=== PATIENT | female | born 1995 | race Hispanic/Latino ===

== ENCOUNTER 2018-06-08 21:46 | Emergency (ER) | payer OTHER ==
[~2018-06-08] VITALS: Ht 160 cm; Wt 80.7 kg
--- OUTSIDE RECORDS SUMMARY | 2018-06-08 21:49 | XMS REPORT ---
[facility] Address Unknown Phone Unavailable Care Team Providers Care Auto Locator Name Role Phone Unavailable Unavailable Payers Payer Name Policy Type Policy Number Effective Date Expiration Date Problems This patient has no known problems. Allergies, Adverse Reactions, Alerts Allergy Name Allergy Type Status Severity Reaction(s) Onset Date Inactive Date Treating Clinician Comments No Known Allergies DA Active U 2018-03-09 00:00:00 Medications This patient has no known medications.
== END 2018-06-08 22:40 | disposition home or self-care (01) ==
LOC: FSED 21:46
DX: L20.9 Atopic dermatitis, unspecified (principal)
CPT/HCPCS: 99282

== ENCOUNTER 2018-09-18 05:04 | Emergency (ER) | payer OTHER ==
[~2018-09-18] VITALS: Ht 160 cm; Wt 78.0 kg
--- NOTE | 2018-09-18 05:58 | Diagnostic Imaging Report ---
EXAMINATION: CXR 2 VIEW - HOPD INDICATION: ^[id number] ^[id number] COMPARISON: None FINDINGS: PA and lateral views TUBES and LINES: None. LUNGS: Lungs are well inflated. Lungs are clear. There is no evidence of pneumonia or pulmonary edema. PLEURA: No pleural effusion or pneumothorax. HEART AND MEDIASTINUM: The cardiomediastinal silhouette is unremarkable. BONES AND SOFT TISSUES: No acute osseous lesion. Soft tissues are unremarkable. UPPER ABDOMEN: No free air under the diaphragm. IMPRESSION: No acute thoracic abnormality. Signed by: Dr. Unique Tabares M.D. on 09/18/2018 5:54 AM
== END 2018-09-18 06:43 | disposition home or self-care (01) ==
LOC: FSED 05:04
DX: R07.89 Other chest pain (principal)
CPT/HCPCS: 71046; 80053; 80076; 84484; 85025; 99284